=== PATIENT | male | born 1970 | race Caucasian/White ===

== ENCOUNTER 2018-11-02 15:56 | Inpatient (IN) | payer SELFPAY ==
[~2018-11-02] VITALS: Ht 177.8 cm; Wt 105.2 kg
[~2018-11-02 15:56] MED LIST: IBUP-974 PO; SULF1TAB12 PO
[2018-11-02 16:03] VITALS: BP 132/85
--- NOTE | 2018-11-02 16:49 | NUR ---
Patient ambulated to bed 2
--- NOTE | 2018-11-02 17:30 | NUR ---
ASSUMED CARE FROM PT, REPORT GIVEN FROM BREONNA Raygoza
--- NOTE | 2018-11-02 17:32 | NUR ---
48M C/O R KNEE PAIN X2 DAYS 09/24 AND SHARP. PT REPORTS WORKING IN [employer] AND HITTING HIS KNEE ON A METAL DISPLAY CASE. R KNEE IS RED/SWOLLEN WELL RT LOWER LEG ANTERIORLY. PT DENIES NUMBNESS/TINGLING, CMS INTACT. DENIES FEVER, CHILLS. IS AMBULATORY. STATES FATIGUE. ERYTHEMATOUS, EDEMATOUS RIGHT KNEE THAT IS WARM TO TOUCH COMPARED TO SURROUNDING SKIN. ERYTHEMA AND WARMTH EXTENDING DOWN TO RIGHT LOWER LEG ANTERIORLY. HX: DENIES RX: DENIES
--- NOTE | 2018-11-02 18:05 | NUR ---
RADIO[facility] TECH PICKED UP PT FOR XRAY.
[2018-11-02 18:45] LABS: BASOPHILS # (AUTO) 0.1 K/uL (0.00-0.22); BASOPHILS % (AUTO) 0.6 % (0.0-2.0); EOSINOPHILS % (AUTO) 0.2 % (0.0-4.0); HEMATOCRIT 45.9 % (36-52); HEMOGLOBIN 15.5 g/dL (12.0-18.0); LYMPHOCYTES # (AUTO) 1.4 K/uL (2.0-11.5); LYMPHOCYTES % (AUTO) 14.6 % (20.5-51.1); MEAN CORPUSCULAR HEMOGLOBIN 29 pg (27-31); MEAN CORPUSCULAR HGB CONC 34 g/dL (33-37); MEAN CORPUSCULAR VOLUME 86.9 fL (80-94); MONOCYTES # (AUTO) 0.8 K/uL (0.8-1.0); MONOCYTES % (AUTO) 8.2 % (1.7-9.3); NEUTROPHILS # (AUTO) 7.1 K/uL (1.8-7.7); NEUTROPHILS % (AUTO) 76.4 % (42.2-75.2); PLATELET COUNT (AUTO) 220 K/uL (140-450); RED BLOOD CELL COUNT(AUTO) 5.28 MIL/uL (4.20-6.10); RED CELL DISTRIBUTION WIDTH 14.1 % (11.6-13.7); WHITE BLOOD COUNT (AUTO) 9.3 K/uL (4.8-10.8)
[2018-11-02 18:58] LABS: ANION GAP 11.5 (8-16); CARBON DIOXIDE 28.1 mmol/L (21-32); CREATININE 1.3 mg/dL (0.7-1.3); POTASSIUM 3.6 mmol/L (3.5-5.1)
[2018-11-02 19:13] LABS: ALBUMIN 3.7 g/dL (3.4-5.0); TOTAL BILIRUBIN 0.4 mg/dL (0.0-1.0)
--- NOTE | 2018-11-02 19:17 | NUR ---
RECEIVED REPORT FROM BREONNA FLEMING. VSS. WILL CONTINUE TO MONITOR.
[2018-11-02] MEDS ORDERED: VANCOMYCIN 1,000 MG in DEXTROSE 5% 250 ML IV ONE (20:00)
--- NOTE | 2018-11-02 20:10 | NUR ---
BLOOD CULTURES DONE, ERIN WALTER AWARE Addendum: 11/02/18 at 2010 by JESSE PER SHAN
[2018-11-02] MEDS ORDERED: VANCOMYCIN 1,000 MG VIAL ONE (20:19)
--- NOTE | 2018-11-02 20:50 | NUR ---
PT BACK FROM CT
--- NOTE | 2018-11-02 21:00 | NUR ---
PT RESTING IN BED ON CELL PHONE, VSS. WILL CONTINUE TO MONITOR.
[2018-11-02] MEDS ORDERED: ONDANSETRON 4 MG/2 ML VIAL IM/IVP PRN (22:00)
[2018-11-02] MEDS ORDERED: ACETAMINOPHEN 325 MG TAB PO PRN (22:00)
[2018-11-02] MEDS ORDERED: HYDROcodone/APAP 5/325 MG 1 TAB TAB PO PRN (22:00)
--- NOTE | 2018-11-02 22:24 | NUR ---
Pt report and transfer of care given to tee barajas.
[2018-11-02] MEDS ORDERED: NACL 0.9% 1,000 ML IV SCH (22:30)
--- NOTE | 2018-11-02 22:30 | NUR ---
Patient arrived in unit via gurney, assisted by two CUPOLA LINER's; patient A/Ox4, able to make needs known, Wolof speaking. Patient able to ambulate from gurney to bed without assistance. Introduced self, updated board, oriented patient to room and hospital environment. Chief complaint of right knee pain for 3 days, DX is Cellulitis of the right knee. No SOB or distress noted, on room air. IV site on left antecubital, saline locked, flushed and patient. Skin intact. Bed in the lowest position, call light within reach. Initial assessment done. Will continue to monitor.
--- NOTE | 2018-11-02 22:30 | NUR ---
Patient will be admitted to care of [facility]. Admited to telemetry. Will go to room 111b. Belongings list completed. Report to BREONNA Chavez.
[2018-11-02 22:47] LABS: PROTHROMBIN TIME 9.5 secs (10.8-13.4)
[2018-11-02 22:48] LABS: PHOSPHORUS 3.3 mg/dL (2.5-4.9); THYROID STIMULATING HORMONE 1.26 uIU/mL (0.34-3.74)
[2018-11-03] VITALS: BP 139/89
--- NOTE | 2018-11-03 00:10 | NUR ---
Vitals taken, no distress noted.
--- NOTE | 2018-11-03 02:10 | NUR ---
Rounds done; patient asleep, eyes closed, visible chest rise and fall noted.
[2018-11-03 02:38] LABS: APPEARANCE,URINE CLEAR (CLEAR); BILIRUBIN,URINE NEGATIVE (NEGATIVE); BLOOD, URINE NEGATIVE (NEGATIVE); COLOR,URINE YELLOW (YELLOW); LEUKOCYTE ESTERASE ,URINE NEGATIVE (NEGATIVE); NITRITE, URINE NEGATIVE (NEGATIVE); UGLUCOSE NEGATIVE (NEGATIVE)
[2018-11-03 02:43] LABS: BARBITURATE, URINE NEG. ng/ml (NEG <=200); BENZODIAZEPINE, URINE NEG. ng/mL (NEG <=200); CANNABINOID, URINE NEG. ng/mL (NEG <=50); COCAINE, URINE NEG. ng/mL (NEG <=300); OPIATE, URINE NEG. ng/mL (NEG <=2000); PHENCYCLIDINE SCREEN,URINE NEG. ng/mL (NEG <=25)
[2018-11-03 03:43] LABS: RBC,URINE 0-5 /HPF (0-5); WBC,URINE 0-5 /HPF (0-5)
[2018-11-03 04:00] VITALS: BP 144/88
--- NOTE | 2018-11-03 04:20 | NUR ---
Vitals taken; patient asleep, no distress noted.
[2018-11-03] MEDS ORDERED: CLINDAMYCIN 600 MG/4 ML VIAL ONE (04:47)
[2018-11-03] MEDS ORDERED: CLINDAMYCIN 600 MG in DEXTROSE 5% 50 ML IV SCH (05:00)
[2018-11-03 07:10] LABS: BASOPHILS % (AUTO) 0.5 % (0.0-2.0); EOSINOPHILS # (AUTO) 0.1 K/uL (0-0.4); EOSINOPHILS % (AUTO) 1.4 % (0.0-4.0); HEMATOCRIT 42.9 % (36-52); HEMOGLOBIN 14.4 g/dL (12.0-18.0); LYMPHOCYTES # (AUTO) 1.6 K/uL (2.0-11.5); LYMPHOCYTES % (AUTO) 22.6 % (20.5-51.1); MEAN CORPUSCULAR HEMOGLOBIN 29 pg (27-31); MEAN CORPUSCULAR HGB CONC 33 g/dL (33-37); MEAN CORPUSCULAR VOLUME 87.2 fL (80-94); MONOCYTES # (AUTO) 0.8 K/uL (0.8-1.0); MONOCYTES % (AUTO) 10.8 % (1.7-9.3); NEUTROPHILS # (AUTO) 4.7 K/uL (1.8-7.7); NEUTROPHILS % (AUTO) 64.7 % (42.2-75.2); PLATELET COUNT (AUTO) 202 K/uL (140-450); RED BLOOD CELL COUNT(AUTO) 4.92 MIL/uL (4.20-6.10); RED CELL DISTRIBUTION WIDTH 13.6 % (11.6-13.7); WHITE BLOOD COUNT (AUTO) 7.2 K/uL (4.8-10.8)
--- NOTE | 2018-11-03 07:10 | NUR ---
Endorsed patient to AM shift RN for continuity of care; patient in stable condition.
--- NOTE | 2018-11-03 07:15 | NUR ---
RECEIVED PT FROM GROUNDS MANAGER NURSE, PT IS AWAKE AND LYING ON THE BED WITH FRIEND ON THE BEDSIDE, IV LINE ON THE LEFT AC G. 20 WITH NS INFUSING AT 10ML/HR, INTACT, K-PAD WAS PLACED ON THE RT LEG, RT LEG CELLULITIS NOTED. SIDE RAILS ARE UP AND CALL LIGHT WITHIN REACH, SAFETY PRECAUTION INITIATED, NO SIGN OF DISTRESS NOTED AND WILL MONITOR PT.
[2018-11-03 07:33] LABS: ANION GAP 10.4 (8-16); CREATININE 0.9 mg/dL (0.7-1.3); POTASSIUM 3.4 mmol/L (3.5-5.1)
[2018-11-03 07:35] LABS: MAGNESIUM 1.9 mg/dL (1.8-2.4); PHOSPHORUS 4.7 mg/dL (2.5-4.9)
[2018-11-03 07:36] LABS: CHOL/HDL RATIO 3.6 (1-4.5)
[2018-11-03 08:00] VITALS: BP 131/90
--- NOTE | 2018-11-03 08:15 | NUR ---
PT IS AWAKE AND VITAL SIGNS TAKEN, BP IS 131/90, PULSE IS 83, TEMP. IS 97.5, O2 SATURATION IS 96%, RESPIRATION IS EVEN, PT DENIES PAIN AND NO SIGN OF DISTRESS NOTED. WILL MONITOR PT.
--- NOTE | 2018-11-03 08:45 | NUR ---
PATIENT HAS BEEN SCREENED AND CATEGORIZED HIGH NUTRITION RISK. PATIENT WILL BE SEEN WITHIN 7 DAYS OF ADMISSION. 11/09/18 Addendum: 11/03/18 at [address] PATIENT HAS BEEN SCREENED AND CATEGORIZED LOW NUTRITION RISK. PATIENT WILL BE SEEN WITHIN 7 DAYS OF ADMISSION. 11/09/18
[2018-11-03] MEDS ORDERED: POTASSIUM CHLORIDE 10 MEQ TABER PO SCH (10:55)
[2018-11-03 12:00] VITALS: BP 146/86
--- NOTE | 2018-11-03 12:07 | NUR ---
PT WAS GIVEN K-DUR AND IV MEDICATION NOW. PT TOLERATED IT. WILL MONITOR PT.
--- NOTE | 2018-11-03 12:58 | NUR ---
PT WAS TRANSFERRED TO MED-SURG NOW AND HEART MONITOR WAS HANDED ON TO DIANA COULTER.
[2018-11-03] MEDS ORDERED: CLINDAMYCIN PHOS 600MG/D5W PM 50 ML IV SCH (13:00)
--- NOTE | 2018-11-03 15:25 | NUR ---
DR. VASQUEZ WAS ADVISED THAT PT WANTS TO LEAVE AMA. DR. VASQUEZ WENT TO PT'S ROOM AND SPOKE TO PT REGARDING THE CONSEQUENCES OF LEAVING AMA. PT VERBALIZED UNDERSTANDING.
--- NOTE | 2018-11-03 15:28 | NUR ---
PT SIGNED AMA FORM NOW, PT WAS ADVISED BY DR. VASQUEZ OF THE CONSEQUENCES OF LEAVING AMA, PT VERBALIZED THAT HE WILL SEEK CONSULTATION TO HIS PCP AND UNDERSTAND THE PREDICAMENT OF HIM LEAVING AMA. DR. VASQUEZ WAS INFORMED.
[2018-11-03] MEDS ORDERED: CLIN300C2 PO (15:53)
[2018-11-03 16:00] VITALS: BP 138/85
--- NOTE | 2018-11-03 16:23 | NUR ---
PT LEFT UNIT NOW AND LEFT AMA ACCOMPANIED BY FRIEND. PT IS STABLE AT THIS TIME.
[2018-11-04 08:06] LABS: T4 (THYROXINE) 7.3 ug/dL (4.5-12.0)
== END 2018-11-03 16:23 | disposition left against medical advice (07) | DRG 603 ==
LOC: MED 15:56 → MTU 21:59
PROVIDERS: ADMIT General Practice; ATTEND General Practice
DX: L03.115 Cellulitis of right lower limb (principal); Z90.49 Acquired absence of other specified parts of digestive tract; F17.200 Nicotine dependence, unspecified, uncomplicated; I10 Essential (primary) hypertension; Z60.2 Problems related to living alone; E66.9 Obesity, unspecified; Z68.33 Body mass index [BMI] 33.0-33.9, adult; Z71.6 Tobacco abuse counseling; F14.10 Cocaine abuse, uncomplicated; E86.0 Dehydration; L02.415 Cutaneous abscess of right lower limb; G47.33 Obstructive sleep apnea (adult) (pediatric)
CPT/HCPCS: 36415; 73562; 73700; 76881; 80048; 80053; 80305; 81001; 83036; 83605; 83735; 84100; 84134; 84436; 84443; 85025; 85610; 85651; 85730; 86140; 87040; 87081; 87086; 93005; 93925; 93970; 99285; J3370; J3490; J7030; J7060; Q0092